=== PATIENT | male | born 1980 | race Caucasian/White ===

== ENCOUNTER 2021-03-10 09:39 | Outpatient (REF) | payer BC, SELFPAY ==
[2021-03-10 13:54] LABS: Alanine Aminotransferase 24 U/L (0-40); Albumin Level 4.7 g/dL (3.5-5.0); Alkaline Phosphatase 65 U/L (39-117); Anion Gap 12 (12-20); Aspartate Amino Transferase 14 U/L (5-37); Bilirubin Total 0.5 mg/dL (0.0-1.0); Blood Urea Nitrogen 14 mg/dL (9-16); Calcium 9.7 mg/dL (8.4-10.2); Carbon Dioxide 29 mmol/L (22-29); Chloride 104 mmol/L (96-108); Estimated Glomerular Filt Rate > 60; Glucose Random 80 mg/dL (60-115); Potassium 4.4 mmol/L (3.3-5.1); Rheumatoid Factor < 15.0 IU/mL (<15.0); Sodium 141 mmol/L (135-145); Total Protein 7.1 g/dL (6.5-8.0)
[2021-03-10 14:17] LABS: Free T4 (Free Thyroxine) 0.97 ng/dL (0.71-1.85); Thyroid Stimulating Hormone 1.24 uIU/mL (0.32-4.0); Vitamin D 25-OH Total 21.3 ng/mL (>30)
[2021-03-10 14:27] LABS: Folate 10.7 ng/mL (> or = 4.0); Vitamin B12 314 pg/mL (200-900)
[2021-03-11 05:17] LABS: Lyme Abs Screen <0.90 index
[2021-03-12 16:01] LABS: Anti Nuclear Antibody Screen POSITIVE (NEGATIVE)
[2021-03-12 16:27] LABS: A. Phagocytophilum Ab IgG <1:64 (<1:64); A. Phagocytophilum Ab IgM <1:20 (<1:20); E. Chaffeensis Ab IgG <1:64 (<1:64); E. Chaffeensis Ab IgM <1:20 (<1:20)
[2021-03-15 13:32] LABS: Testosterone, Free 57.9 pg/mL (35.0-155.0); Testosterone, Total 325 ng/dL (250-1100)
[2021-03-16 12:01] LABS: Babesia IgG <1:64 titer (<1:64); Babesia IgM <1:20 titer (<1:20)
== END 2021-03-10 09:40 | disposition home or self-care (01) ==
LOC: HO.MANLDS 09:39
PROVIDERS: PCP Internal Medicine; Visit Provider Physician Assistant
DX: R53.83 Other fatigue (principal)
CPT/HCPCS: 36415; 80053; 82306; 82607; 82746; 84402; 84403; 84439; 84443; 86038; 86039; 86431; 86617; 86618; 86666; 86753

== ENCOUNTER 2025-03-19 10:58 | Outpatient (REF) | payer BC, SELFPAY ==
--- OUTSIDE RECORDS SUMMARY | 2025-03-19 12:22 | XMS_ITS | Encounter Summary ---
Author Organization [employer] Address [address] [facility] [address] [place] [address] Care Team Providers Care Medical Assistant Secretary Name Role Phone Unavailable Primary Care Provider Unavailabl e Encounter Details Date Type Department Care Team (Latest Contact Info) Description 01/30/2019 Abstract [facility] Dental, Provider, DDS Social History Tobacco Use Types Packs/Day Years Used Date Smoking Tobacco: Never Assessed Sex and Gender Information Value Date Recorded Sex Assigned at Male 08/29/2022 10:18 AM EDT Legal Sex Male 10:18 AM EDT Gender Identity Male 08/29/2022 10:18 AM EDT Sexual Orientation Lesbian or Restrepo 08/29/2022 10 :18 AM EDT documented as of this encounter Plan of Treatment Not on file documented as of this encounter Visit Diagnoses Not on filedocumented in this encounter
--- OUTSIDE RECORDS SUMMARY | 2025-03-19 12:22 | XMS_ITS | Clinical Summary ---
Author Organization [employer] Address [address] [facility] [address] [place] [address] Care Team Providers Care Lunchroom Supervisor Name Role Phone Unavailable Primary Care Provider Unavailabl e Social History Tobacco Use Types Packs/Day Years Used Date Smoking Tobacco: Never Assessed Sex and Gender Information Value Date Recorded Sex Assigned at Male 08/29/2022 10:18 AM EDT Legal Sex Male 10:18 AM EDT Gender Identity Male 08/29/2022 10:18 AM EDT Sexual Orientation Lesbian or Restrepo 08/29/2022 10 :18 AM EDT Plan of Treatment Health Maintenance Due Date Last Done Comments Depression Screening 1982 Lipid Panel 1982 Alcohol/Substance Use Screening 1994 Tobacco Screening 1994 Family Planning (PISQ) 1997 DTaP/Tdap/Td Vaccines (1 - Tdap) 2001 Hepatitis B Vaccines (1 of 3 - 19+ 3-dose series) 2001 COVID-19 Vaccine ( - 2023-2 5 season) 2024 Influenza Vaccine (#1) 2024 Zoster Vaccines (1 of 2) 2032 RSV Patients and Pa tients Aged 60 years or older (1 - 1-dose 75+ series) 2057 HIB Vaccines Aged Out No longer eligi ble based on patient's age to complete this topic HPV Vaccines Aged Out No longer eligi ble based on patient's age to complete this topic Hepatitis A Vaccines Aged Out No long er eligible based on patient's age to complete this topic IPV Vaccines Aged Out No longer eligi ble based on patient's age to complete this topic Meningococcal B Vaccine Aged Out No l onger eligible based on patient's age to complete this topic Meningococcal Vaccine Aged Out No pretty maura eligible based on patient's age to complete this topic Pneumococcal Vaccine: Pediat rics (0 to 5 Years) and At-Risk Patients (6 to 49) Years) Aged Out No longer eligible b ased on patient's age to complete this topic RSV under 20 months Aged Out No longe r eligible based on patient's age to complete this topic Rotavirus Vaccines Aged Out No longer eligible based on patient's age to complete this topic
[2025-03-19 13:05] LABS: MANUAL DIFF FLAG NO
[2025-03-19 13:21] LABS: Basophils Absolute Auto 0.1 X10*3/uL (0.0-0.2); Basophils Percent Auto 0.7 % (0-2); Eosinophils Absolute Auto 0.1 X10*3/uL (0.0-0.4); Eosinophils Percent Auto 1.1 % (0-4); Hematocrit 46.6 % (42.0-52.0); Hemoglobin 15.8 g/dl (14.0-18.0); Imm Gran Abs Auto 0.01 X10*3/uL (0.00-0.03); Imm Gran Pct Auto 0.1 % (0.0-0.4); Lymphocytes Percent Auto 29.3 % (20-40); Mean Corpuscular HGB Conc 33.9 g/dl (31.0-36.0); Mean Corpuscular Hemoglobin 31.2 pg (27.0-33.0); Mean Corpuscular Volume 91.9 fL (80.0-98.0); Mean Platelet Volume 9.5 fL (9.4-12.4); Monocytes Absolute Auto 0.7 X10*3/uL (0.1-1.2); Monocytes Percent Auto 9.9 % (2-11); Neutrophils Absolute Auto 4.1 x10*3/uL (2.0-8.3); Neutrophils Percent Auto 58.9 % (45-73); Platelet Count 272 X10*3/uL (160-400); Red Blood Count 5.07 X10*6/uL (4.60-5.80); Red Cell Distribution Width 12.5 % (11.0-16.0)
[2025-03-19 14:12] LABS: Folate 12.3 ng/mL (> or = 4.0); Vitamin B12 435 pg/mL (200-900)
[2025-03-19 14:35] LABS: Alanine Aminotransferase 27 U/L (0-40); Albumin Level 4.6 g/dL (3.5-5.0); Alkaline Phosphatase 56 U/L (39-117); Anion Gap 12 (12-20); Aspartate Amino Transferase 22 U/L (5-37); Bilirubin Total 0.5 mg/dL (0.0-1.0); Blood Urea Nitrogen 16 mg/dL (9-16); Calcium 9.2 mg/dL (8.4-10.2); Carbon Dioxide 23 mmol/L (22-29); Chloride 111 mmol/L (96-108); Estimated Glomerular Filt Rate > 60; Glucose Random 91 mg/dL (60-115); Sodium 142 mmol/L (135-145); Total Protein 6.9 g/dL (6.5-8.0)
[2025-03-19 14:48] LABS: Thyroid Stimulating Hormone 0.98 uIU/mL (0.32-4.0); Vitamin D 25-OH Total 55.2 ng/mL (>30)
[2025-03-19 15:04] LABS: CT PCR NOT DETECTED (Not Detect.); NG PCR NOT DETECTED (Not Detect.)
[2025-03-20 04:20] LABS: HIV AB/AG Nonreactive (Nonreactive); HIV Num 1 0.06 S/CO (0.00-0.99)
[2025-03-23 17:58] LABS: Testosterone, Total 315 ng/dL (250-1100)
== END 2025-03-19 10:59 | disposition home or self-care (01) ==
LOC: HO.MANLDS 10:58
PROVIDERS: Visit Provider Internal Medicine
DX: R53.82 Chronic fatigue, unspecified (principal); Z11.59 Encounter for screening for other viral diseases
CPT/HCPCS: 80053; 82306; 82607; 82746; 84402; 84403; 84443; 85025; 87389; 87491; 87591

== ENCOUNTER 2025-06-16 11:11 | Outpatient (REF) | payer BC, SELFPAY ==
--- OUTSIDE RECORDS SUMMARY | 2025-06-16 12:25 | XMS_ITS | Clinical Summary ---
Author Organization [employer] Address [address] [facility] 7[address] [place] [address] Care Team Providers Care Party Plan Selling Distributor Name Role Phone Unavailable Primary Care Provider [...] Comments Depression Screening 1982 Lipid Panel 1982 Disability Screening 1982 Alcohol/Substance Use Screening 1994 Tobacco Screening 1994 Family Planning (PISQ) 1997 HPV Vaccines (1 - Male 3-dos e series) 1997 DTaP/Tdap/Td Vaccines (1 - Tdap) 2001 Hepatitis B Vaccines (1 of 3 - 19+ 3-dose series) 2001 COVID-19 Vaccine (1 - 2023-2 5 season) 2024 Influenza Vaccine (#1) 2025 Zoster Vaccines (1 of 2) 2032 RSV [...] Years) and At-Risk Patients (6 to 49) Years Aged Out No longer eligible b ased on patient's age to complete this topic RSV under 20 months Aged Out No longe r eligible based on patient's age to complete this topic Rotavirus Vaccines Aged Out No longer eligible based on patient's age to complete this topic
--- OUTSIDE RECORDS SUMMARY | 2025-06-16 12:25 | XMS_ITS | Clinical Summary ---
Author Organization [facility] Address [address] [facility] [address] [place] [phone] Phone Care Team Providers Care Computer Numeric Control Setter Name Role Phone Phan Cisneros DO Primary Care Provider [phone] Allergies No known active allergies Medications buPROPion (WELLBUTRIN XL) 150 MG ER 24 hr tablet Take 1 tablet every day by oral route for 30 days. Active triamcinolone acetonide 0.1 % cream APPLY A THIN LAYER TO THE AFFECTED AREA(S) BY TOPICAL ROUTE 2 TIMES PER DAY Active gabapentin (NEURONTIN) 100 MG capsule Take 2 capsules (200 mg total) by mouth nightly at bedtime. 60 capsule 11 5 Active nicotine (NICODERM CQ) 14 mg/[address] 1 patch onto the skin daily. 30 patch 5 06/11/20 25 Active Problems Problem Noted Date Diagnosed Date Tobacco dependence syndrome 03/23/2021 Encounters Date Type Department Care Team Description 05/12/2025 2:02 PM EDT - 05/12/2025 11:59 PM EDT Hospital Encounter [facility] [address] [place] [address] Carlos Alberto Trotter MD Discharge Disposition: Home or Self Care 05/12/2025 1:00 PM EDT Office Visit [facility] [address], [address] [place] [address] Carlos Alberto Trotter MD SALOME (obstructive sleep apnea) (Primary Dx); RLS (restless legs syndrome); Smoking hx 05/07/2025 7:30 AM EDT - 05/07/2025 11:59 PM EDT Hospital Encounter [facility] [address] [place] [address] Phan Cisneros, DO Discharge Disposition: Home or Self Care 04/02/2025 Procedure Pass [facility] [address] [place] [address] 04/02/2025 Transcribe Orders Virtual Department [address] [place] [address] Phan Cisneros, DO Other form of dyspnea (Primary Dx) 03/19/2025 Transcribe Orders Virtual Department [address] [place] [address] Phan Cisneros, DO Dyspnea, unspecified type (Primary Dx) 03/19/2025 Transcribe Orders [facility] [address] [facility] [address], [address] [place] [address] Phan Cisneros, DO Sleep apnea, unspecified type (Primary Dx) from Last 3 Months Family History Medical History Relation Comments Stroke Father Relation Status Comments Father Social History Tobacco Use Types Packs/Day Years Used Date Smoking Tobacco: Every Day Cigarettes 1 29.6 Started: 1995 Smokeless Tobacco: Never Tobacco Cessation:Ready to Q uit: Not Asked; Counseling Given: Not Answered Alcohol Use Standard Drinks/Week Comments Not Currently 0 (1 standard drink = 0.6 oz pur e alcohol) Education Answer Date Recorded Are you interested in more education? Not on caitlyn e 02/24/2023 Are you concerned about learning? Not on file 02/24/2023 No 02/24/2023 No 02/24/2023 Digital Access Answer Date Recorded No 03/24/2023 No 03/24/2023 Reliable internet access at home? Not on file 03/24/2023 Device with a working camera? Not on file Sex and Gender Information Value Date Recorded Sex Assigned at Not on file Legal Sex Male 9:19 PM EDT Gender Identity Not on file Sexual Orientation Not on file Last Filed Vital Signs Vital Sign Reading Time Taken Comments Blood Pressure 130/70 05/12/2025 12:56 PM EDT Pulse 72 05/12/2025 12:56 PM EDT Temperature 36.7 C (98.1 F) 10/28/2022 5:03 PM EST Respiratory Rate 16 10/28/2022 5:03 PM EST Oxygen Saturation 97% 05/12/2025 12:56 PM EDT Inhaled Oxygen Concentration - - Weight 102.5 kg (226 lb) 05/12/2025 12:56 PM EDT Height 182.9 cm (6' 0.01 ) 05/12/2025 12:56 PM E DT Body Mass Index 30.64 05/12/2025 12:56 PM EDT Plan of Treatment Upcoming Encounters Date Type Department Care Team (Late st Contact Info) Description 07/23/2025 7:15 AM EDT Appointment [facility] [address] [place] [address] Phan Cisneros DO [address] [facility] [address] [place] [address] [email or web address] 08/12/2025 2:00 PM EDT Office Visit [facility] [address] [place] [address] 3rd Floor, [address] [place] [address] Carlos Alberto Trotter MD [address] [facility], [address] [place] [address] [email or web address] Health Maintenance Due Date Last Done Comments LIPID PANEL 1982 DEPRESSION SCREENING 1994 HEPATITIS C SCREENING 2000 HIV ONE-TIME SCREENING (18-6 5 YEARS) 2000 PNEUMOCOCCAL VACCINES (0-49 years) (1 of 2 - PCV) 2001 SCREENING FOR DIABETES 2017 COVID-19 VACCINE ( - 2023-2 5 season) 2024 10/26/2021, 02/07/2021, 01/09/2021 SMOKING Hx and SMOKELESS TOBACCO SCREENING 05/12/2026 05/12/2025 Adult Td,Tdap Booster 07/24/2031 07/24/2021 HEPATITIS A VACCINES Aged Out No long er eligible based on patient's age to complete this topic HIB VACCINES Aged Out No longer eligi ble based on patient's age to complete this topic MENINGOCOCCAL VACCINES (ACWY) Aged Out No longer eligible based on patient's age to complete this topic MENINGOCOCCAL VACCINES (B) Aged Out N o longer eligible based on patient's age to complete this topic Medical Devices Not on file Procedures Procedure Name Priority Date/Time Associated Diagnosis Comments IRON AND IRON BINDING CAPACITY Routine 05/12/2025 2:11 PM EDT RLS (restless legs syndrome) FERRITIN Routine 05/12/2025 2:11 PM EDT RLS (restless legs syndrome) TTE COMPREHENSIVE Routine 05/07/2025 8:1 1 AM EDT Other form of dyspnea from Last 3 Months Results * Iron and iron binding capacity (05/12/2025 2:11 PM EDT) IRON 95 45 - 160 ug/dL [facility] IRON BINDING CAPACITY 297 228 - 428 ug/dL [facility] TRANSFERRIN SATURAT. 32 20 - 55 % [facility] Blood 05/12/2025 2:11 PM EDT 05/12/2025 2:15 PM EDT Carlos Alberto Trotter MD LAB BLOOD ORDERABLES Final Res ult Performing Organization Address [facility]/ZIP Co de Phone Number [address] [address] * Ferritin (05/12/2025 2:11 PM EDT) FERRITIN 149 30 - 400 ug/L [facility] Blood 05/12/2025 2:11 PM EDT 05/12/2025 2:15 PM EDT Carlos Alberto Trotter MD LAB BLOOD ORDERABLES Final Res ult [address] [address] * TTE COMPREHENSIVE (05/07/2025 8:11 AM EDT) Body Surface Area 2.22 m2 Height 183 cm Weight 100 kg Systolic BP 128 mmHg Diastolic BP 83 mmHg Left Atrium Dimension Anterior-Posterior 29 15 - 40 mm Aortic Valve Mean Gradient 4 mmHg Aortic Valve Time Velocity Integral 233.0 mm Aortic Valve Peak Velocity 1.4 m/s Aortic Valve Peak Gradient 8 mmHg Aortic Arch Diameter 26 mm Aortic Sinus Diameter 30 <40 mm Ascending Aorta Diameter 37 <36 mm Inferior Vena Cava Diameter 14 <21 mm Interventricular Septum Thickness 10 6 - 11 mm Left Ventricle Internal Diameter End Diastole 43 42 - 58 mm Left Ventricle Internal Diameter End Systole 29 <40 mm Left Ventricular Outflow Tract Diameter 17.0 mm LVOT VTI REST 232.0 mm Left Ventricular Outflow Tract Velocity 1.4 m/s Left Ventricular Outflow Tract Gradient at Rest 7 mmHg Left Ventricular Posterior Wall Thickness 10 6 - 11 mm Left Ventricle Ea Lateral Wave Speed 11.6 cm/s Left Ventricle Ea Septal Wave Speed 10.1 cm/s Mitral Valve Deceleration Time 148 ms Ejection Fraction 61 50 - 75 Percent Left Ventricle A Wave Speed 71.6 cm/s Left Ventricle E Wave Speed 101.0 cm/s Right Ventricle Basal Diameter 31 25 - 41 mm Tricuspid Valve Peak Velocity 2.3 m/s Raw LV EF% 55 % MV E/E' Tissue Velocity Lateral 8.71 Relative Wall Thickness 0.47 0.22 - 0.42 Left Ventricle indexed to BSA 64.2 g/m2 MV E/A ratio 1.4 MV E/e' septal 10.00 Left Ventricle E/e' Average 9.4 Aortic Valve Prosthetic Peak Gradient 8 mmHg Aortic Valve Prosthetic Mean Gradient 4 mmHg Aortic Valve Sinus Index by BSA 14 mm/m2 Aorta Sinus Index by Height 1.64 cm/m Aorta Sinus CSA index by Height 3.86 cm2/m Ascending Aorta Index 17 mm/m2 Asc Aorta CSA Index by Height 5.87 cm2/m MGB CV AV DIMENSIONLESS INDEX (PEAK) - STRESS ECHO DOBUT - REST 1.00 Ascending Aorta Index 17 mm Aortic Sinus Index 14 mm Ascending Aorta Diameter 17 mm Aortic Valve Sinus Index 1 14 20 - 32 mm AO ASC DIAM BSA INDEX 16.67 Echo E/Ea 10.00 Left Atrial Volume Index 24 16 - 34 mL/m2 Left Atrial Volume 53 mL Left Atrial Volume Index by Height 29 mL/m Right Atrium Area 11 cm2 Right Atrium Area index 5 cm2/m2 Right Ventricle to Right Atrium Pressure Gradient 21 mmHg Right Ventricle Peak Systolic Pressure (Assuming RAP 10) 31 mmHg MGB CV ECHO TV RVSP (ASSUMING RAP OF 5) 26 mmHg RVSP (Exclusive of RAP) 21 mmHg Right Ventricle Peak Systolic Pressure 24 mmHg Right Atrium Pressure Estimated 3 mmHg Anatomical Region Laterality Modality Heart Ultrasound Narrative 05/07/2025 5:01 PM EDT Images from the original result were not included. Normal LV size and wall thickness. LV systolic function is normal with EF 60-65%. There are no regional wall motion abnormalities. Normal diastolic function. Grossly normal RV size and function. There is no dynamically significant valvular disease. No prior study for comparison. Left Ventricle The left ventricle is normal in size. There is normal wall thickness. There is normal left ventricular systolic function. The LV ejection fraction is 61% (calculated via the single dimension method). LV diastolic function appears within normal limits for age. The e' septal wave velocity is 10.1 cm/s. The e' lateral wave velocity is 11.6 cm/s. The average E/e' ratio is 9.4. Right Ventricle The right ventricle is normal in size. The RV basal dimension is 31 mm. Right ventricular systolic function could not be assessed. Left Atrium The left atrium is normal in size. The left atrial anterior-posterior dimension is 29 mm. There are normal flow patterns in the pulmonary vein. Right Atrium The right atrium is normal in size. The IVC is normal in size with normal inspiratory collapse. The IVC diameter is 14 mm. Mitral Valve The mitral valve appears normal. There is no mitral stenosis. There is trace mitral regurgitation. Tricuspid Valve The tricuspid valve is suboptimally visualized. There is no obvious structural abnormality. There is no tricuspid stenosis. There is trace tricuspid regurgitation. The RV systolic pressure was calculated at 24 mmHg (using TR peak velocity of 2.3 m/s and assuming an RA pressure of 3 mmHg). Normal pulmonary pressure. Aortic Valve The aortic valve is suboptimally visualized. There is no obvious structural abnormality. There is no aortic stenosis. There is no aortic regurgitation. The visualized portions of the thoracic aorta appear normal in size. Pulmonic Valve The pulmonic valve appears normal. There is no pulmonic stenosis. There is no pulmonic regurgitation. Pericardium There is no pericardial effusion. General Findings The image quality was fair (3). Technique(s) used in the evaluation: Color flow Doppler and Spectral Doppler. The predominant rhythm during the study was sinus. Comparison Findings There are no prior studies for comparison. IAS/IVS The interatrial septum appears normal. us Phan Cisneros DO CV ECHO ORDERABLES Final Result from Last 3 Months Insurance Care Teams Computer Numeric Control Setter Relationship Specialty Start Date End Date MadiPhan [email or web address] [email or web address] PCP - General Internal Medicine 05/16/21 Additional Source Comments The information contained in this document represents components of the legal health record. It is not the complete legal health record.[facility]
[2025-06-16 13:05] LABS: MANUAL DIFF FLAG NO
[2025-06-16 13:09] LABS: Hematocrit 45.2 % (42.0-52.0); Hemoglobin 15.4 g/dl (14.0-18.0); Imm Gran Abs Auto 0.02 X10*3/uL (0.00-0.03); Imm Gran Pct Auto 0.3 % (0.0-0.4); Lymphocytes Absolute Auto 2.2 X10*3/uL (1.2-4.9); Mean Corpuscular HGB Conc 34.1 g/dl (31.0-36.0); Mean Corpuscular Hemoglobin 31.3 pg (27.0-33.0); Mean Corpuscular Volume 91.9 fL (80.0-98.0); NRBC Abs Auto 0.000 X10*3/uL (0.0-0.012); NRBC Pct Auto 0.0 /100WBC (0.0-0.2); Platelet Count 265 X10*3/uL (160-400); Red Blood Count 4.92 X10*6/uL (4.60-5.80); White Blood Count 6.8 X10*3/uL (4.8-10.8)
[2025-06-16 13:38] LABS: Alanine Aminotransferase 23 U/L (0-40); Albumin Level 4.5 g/dL (3.5-5.0); Alkaline Phosphatase 72 U/L (39-117); Anion Gap 11 (12-20); Aspartate Amino Transferase 21 U/L (5-37); Blood Urea Nitrogen 14 mg/dL (9-16); Calcium 9.1 mg/dL (8.4-10.2); Carbon Dioxide 28 mmol/L (22-29); Chloride 108 mmol/L (96-108); Estimated Glomerular Filt Rate > 60; Potassium 4.5 mmol/L (3.3-5.1); Sodium 142 mmol/L (135-145); Total Protein 6.7 g/dL (6.5-8.0)
[2025-06-16 13:55] LABS: Thyroid Stimulating Hormone 2.08 uIU/mL (0.32-4.0)
== END 2025-06-16 11:12 | disposition home or self-care (01) ==
LOC: HO.MANLDS 11:11
PROVIDERS: Visit Provider Internal Medicine
DX: M79.602 Pain in left arm (principal)
CPT/HCPCS: 36415; 80053; 84443; 85025; 85652